=== PATIENT | female | born 1965 | race Caucasian/White ===

== ENCOUNTER 2018-06-17 07:30 | Emergency (ER) | payer BC ==
[2018-06-17 08:06] VITALS: BP 179/86
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
--- NOTE | 2018-06-17 09:29 | RAD ---
HISTORY: point tender left lower paraspinal football injury COMPARISONS: None VIEWS: 5 , Frontal, lateral, coned-down lateral sacral, and bilateral oblique views of the lumbar spine. FINDINGS: ALIGNMENT: The alignment is normal. VERTEBRAL BODIES: The vertebral body heights are normal. The interpedicular distances are normal. There is mild anterolateral marginal osteophyte formation. JOINTS: There is facet osteoarthritis most pronounced along the lower lumbar spine. INTERVERTEBRAL DISCS: There is diffuse loss of intervertebral disc height. SOFT TISSUE: Unremarkable. OTHER: The pelvis is unremarkable. The lung bases are clear. IMPRESSION: DEGENERATIVE DISC DISEASE AND OSTEOARTHRITIS MOST PRONOUNCED ALONG THE LOWER LUMBAR SPINE. NO ACUTE OSSEOUS INJURY. IF SYMPTOMS PERSIST, RECOMMEND REPEAT IMAGING.
== END 2018-06-17 09:57 | disposition home or self-care (01) ==
LOC: UCCORT 07:30
DX: S39.92XA Unspecified injury of lower back, initial encounter (principal); W21.01XA Struck by football, initial encounter; Y93.9 Activity, unspecified; Y92.9 Unspecified place or not applicable; Z88.1 Allergy status to other antibiotic agents; Z88.0 Allergy status to penicillin; E11.9 Type 2 diabetes mellitus without complications; Z79.4 Long term (current) use of insulin; Z79.84 Long term (current) use of oral hypoglycemic drugs
CPT/HCPCS: 72110; 99201; G0463

== ENCOUNTER 2018-12-05 07:26 | Emergency (ER) | payer BC ==
--- NOTE | 2018-12-05 07:38 | UC ---
Minor Trauma HPI - HPI Summary HPI Summary: Patient presents to urgent care status post a fall that happened at 7:00 this morning. Patient states she was taking out garbage and didn't realize that it was icy. Patient states she slipped falling back. Patient landed on her buttock and low back, then struck her posterior head. No loss of consciousness. No blood from her HEENT. Patient did not lose consciousness. No chest pain or shortness of breath. No abdominal pain. No nausea vomiting. No paresthesias. Patient should reports posterior headache. Patient states she was crying very hard she was amenable to get herself under work and struggled to get up. Patient was able to get up on her. Patient drove herself here. Patient states she does have mild frontal headache that she thinks is from crying. Patient reports some discomfort in her left anterior shoulder. Patient states her legs ache. No open wounds, bruising, or abrasions that she is aware of. Patient is not on any anticoagulation. Patient's medications reviewed this visit. Pt is a diabetic - did not check sugars this morning. States she has been running high (200s) because running low on nighttime insulin - History of Current Complaint Stated Complaint: S/P FALL, BILAT ELBOW,RIGHT LEG,HEADACHE Hx Obtained From: Patient - Allergies/Home Medications Allergies/Adverse Reactions: Allergies Allergy/AdvReac Type Severity Reaction Status Date / Time cefaclor [From [facility]] Allergy Flu-like Verified 12/05/18 07:39 Symptoms Penicillins Allergy Rash Verified 12/05/18 07:39 erythromycin base AdvReac GI Upset Verified 12/05/18 07:39 Home Medications: Home Medications Low Dose Control 1 tab PO DAILY 12/05/18 [History Confirmed 12/05/18] PMH/Surg Hx/FS Hx/Imm Hx Previously Healthy: Yes Endocrine History: Diabetes - Surgical History Surgical History: Yes Surgery Procedure, Year, and Place: Cholecystectomy, 2000, [facility]; , 1994, [place] - Family History Known Family History: Positive: Hypertension - Social History Occupation: Employed Full-time Lives: With Family Alcohol Use: Rare Substance Use Type: None Smoking Status (MU): Never Smoked Tobacco Review of Systems All Other Systems Reviewed And Are Negative: Yes Constitutional: Positive: Negative Skin: Positive: Negative Eyes: Positive: Negative ENT: Positive: Negative Respiratory: Positive: Negative Cardiovascular: Positive: Negative Musculoskeletal: Positive: Other: - left anterior shoulder Neurological: Positive: Headache. Negative: Weakness, Paresthesia, Numbness Psychological: Positive: Negative Is Patient Immunocompromised?: No Physical Exam - Summary Physical Exam Summary: Vital Signs Reviewed: Yes A+Ox3, tearful - anxious - improved with conversation Eyes: Conjunctiva Clear, ETHAN. EOM intact and full ENT: Hearing grossly normal TM x 2 clear, no hemotymp, no septal hematoma, no blood oropharynx. mmoist, uvula midline, no exudate, no erythema Neck: Positive: Supple no pain c/t/l/s Respiratory: Positive: No respiratory distress, No accessory muscle use + CTA throughout no w/r Cardiovascular: RRR nl s1, s2 no m/r CBT <2 sec abd soft + BS nt/nd no guarding, no distension Musculoskeletal Exam: No pain spinous process c/t/l/s. mild discomfort cervical left paraspinal full AROM ext x 4 against resistance. Pt with pain left anterior shoulder with full extension and direct palpation + flex/ext elbow, pronate/supinate + abduction + SLE b/l + flex/ext knees, ankle Pt ambulatory Neurological: Positive: Alert, + sensation throughout Psychological: Positive: Normal Response To Family Skin: Positive: no rash, no ecchymosis, no open wounds noted Triage Information Reviewed: Yes Diagnostics - Radiology No standard instances Radiology Interpretation Completed By: Radiologist - Patient Name: AGUSTIN KRAUS Medical Record#: [id number] Ordering Physician: Lynn Otero MD Acct.#: [id number] : 1965 Age: 53 Sex: F Location: [facility] Exam Date: 12/05/18801 ADM Status: REG ER Order Information: SHOULDER LEFT 2+ VWS Accession Number: [id number] CPT: 65386 Indication: Left shoulder pain. 4 views of left shoulder demonstrates AC joint arthritis. There is calcifications along the quadriceps tendon which may represent calcific tendinitis. AC joint arthritis is noted. IMPRESSION: Calcific tendinitis of the distal supraspinatus tendon. AC joint arthritis is noted. <Electronically signed by Cindy Toledo MD in OV> 12/05/18819 Dictated By: Cindy Toledo MD Dictated Date/Time: 12/05/18819 Transcribed Date/ Time: 12/05/18817 Copy to: CC:Lynn Otero MD; No Primary Care Phys,NOPCP Imaging - [facility] Imaging [facility] Imaging [facility] [id number] [place] [address] ph ([phone]) ph ([phone]) ph ( [phone]) This report is only to be considered final once signed by the Provider(s) as displayed in the "<Electronically Signed by > " field (s). Absence of a signature indicates the report is in a draft status and still needs to be finalized. In the event this document was created by someone other than the signing Provider, the individual initiating the document will be listed in the "Entered by:" or "Dictated by:" oneil. 1 of 1 Patient Name: AGUSTIN KRAUS Medical Record#: [id number] Ordering Physician: Lynn Otero MD Acct.#: [id number] : 1965 Age: 53 Sex: F Location: [facility] Exam Date : 12/05/18 0759 ADM Status: [facility] ER Order Information: CT BRAIN WO Accession Number: [id number] CPT: 70066 Indication: Fall and headache. CT of the brain performed without IV contrast. Ventricular structures are midline. No midline shift is noted. The extra-axial spaces are unremarkable. There is no evidence of intracranial mass or hemorrhage. No other high or low density lesions are identified. Mastoid air cells and paranasal sinuses are otherwise unremarkable. IMPRESSION: No intracranial mass or hemorrhage is noted. <Electronically signed by Cindy Toledo MD in OV> 03/19/19 0840 Dictated By: Cindy Toledo MD Dictated Date/Time: 12/05/18 0840 Transcribed Date/Time: 12/05/18 0834 Copy to: CC: Lynn Otero MD; No Primary Care Phys,NOPCP Imaging - [facility] Imaging - [place] [facility] Imaging [facility] [id number] [place] [address] [place] [address] ph ([phone]) ph ([phone]) ph ([phone]) This report is only to be considered final once signed by the Provider(s) as displayed in the "<Electronically Signed by >" field (s). Absence of a signature indicates the report is in a draft status and still needs to be finalized. In the event this document was created by someone other than the signing Provider, the individual initiating the document will be listed in the "Entered by:" or "Dictated by:" oneil. 1 of 1 Patient Name: AGUSTIN KRAUS Medical Record#: [id number] Ordering Physician: Lynn Otero MD Acct.#: [id number] : 1965 Age: 53 Sex: F Location: [facility] Exam Date: 12/05/18 0759 ADM Status: REG ER Order Information: CT SPINE CERVICAL W/O Accession Number: [id number] CPT: 48396 HISTORY: fall, headache COMPARISONS: None relevant available at the time of dictation. TECHNIQUE: Multiple contiguous axial CT scans were obtained of the cervical spine without intravenous contrast, with coronal and sagittal multiplanar reformations. FINDINGS: BRAIN: The visualized brain is unremarkable CENTRAL CANAL: Evaluation of the central canal is limited on CT technique; however, there is no obvious canalicular mass or epidural hemorrhage. ALIGNMENT: There is trace anterolisthesis of C4 on C5. VERTEBRAL BODIES: There is anterolateral marginal osteophyte formation, reactive endplate changes most pronounced at C6-C7. There is no displaced fracture. JOINTS: There is uncovertebral and facet osteoarthritis. MUSCULATURE: Unremarkable INTERVERTEBRAL DISCS: There is diffuse loss of intervertebral disc height. AXIAL IMAGES: C2-C3: There is no osseous neural foraminal narrowing or central canal stenosis. C3-C4: There is mild right neural foraminal narrowing. There is no osseous central canal stenosis. C4-C5: There is no osseous neural foraminal narrowing or central canal stenosis. C5-C6: There is no osseous neural foraminal narrowing or central canal stenosis. C6-C7: There is moderate bilateral neuroforaminal narrowing. There is no osseous central canal stenosis. C7-T1: There is no osseous neural foraminal narrowing or central canal stenosis. SOFT TISSUES: The visualized soft tissues of the neck are unremarkable. The prevertebral fat stripe is preserved. OTHER: None. IMPRESSION: DEGENERATIVE DISC DISEASE AND OSTEOARTHRITIS. NO ACUTE OSSEOUS INJURY TO THE CERVICAL SPINE. <Electronically signed by Omid Swenson MD in OV> 12/05/18837 Dictated By: Omdi Swenson MD Dictated Date/Time: 12/05/18837 Transcribed Date/Time: 12/05/18835 This report is only to be considered final once signed by the Provider(s) as displayed in the "<Electronically Signed by >" field (s). Absence of a signature indicates the report is in a draft status and still needs to be finalized. In the event this document was created by someone other than the signing Provider, the individual initiating the document will be listed in the "Entered by:" or "Dictated by:" oneil. 1 of 2 Re-Evaluation - Re-Evaluation First Eval Re-Evaluation Time: 09:05 Change: Improved Comment: reviewed all images with pt. anticipate pain. motrin/apap. rest. hydrate. stretch. work note. return precautions Minor Trauma Course/Dx - Course Course Of Treatment: Patient presents to urgent care status post a mechanical slip on the ice. Patient here buttock low back and on her head. Patient without lose consciousness. Patient was crying very anxious initially. Patient after discussion called. Patient reports discomfort in her left anterior shoulder. Patient states her legs feel tight and achy but no focal pain. Patient denies vision changes of the she does have a posterior headache on the fall and frontal headache from crying. We'll give Tylenol. We'll place eyes. We'll check a CT head and neck this patient lives alone is very scared by the head injury. Left shoulder injury. On reassessment. Patient comfortable in agreement with plan. Pt's BP elevated at triage - anxious and tearful - related to visit -recommend recheck with PCP - Differential Dx/Diagnosis Provider Diagnosis: Musculoskeletal arm pain, Closed head injury Discharge - Sign-Out/Discharge Documenting (check all that apply): Patient Departure All imaging exams completed and their final reports reviewed: Yes - Discharge Plan Condition: Stable Disposition: HOME Patient Education Materials: Head Injury (ED), Musculoskeletal Pain (ED) Forms: *Work Release Referrals: No Primary Care Phys,NOPCP [Primary Care Provider] - Additional Instructions: Stay well hydrated. Drink plenty of non-alcoholic, non-caffinated beverages Anticipate increased body aches and soreness over the next 1-2 days- this is normal after a fall. Okay to alternate ibuprofen (Advil, Motrin) 600mg and Tylenol 650mg every 3 hours for pain or fever. Take with food. Do NOT take for more than 4-5 days. For the first 2 days, apply ice (wrapped in a towel) 20 minutes at a time, 2-3 times a day today and tomorrow. Then, apply heat - slow, gentle stretching is important It is recommended you walk and stretch slow every few hours today while you are awake to help with muscle stiffness. Contact your doctor to schedule a follow-up appointment this week. If you develop any concerning changes - vision changes, vomiting, confusion, uncontrolled pain - it is recommended you contact your doctor or go to the emergency department for further evaluation and treatment - Billing Disposition and Condition Condition: STABLE Disposition: Home
[2018-12-05 07:42] VITALS: BP 167/92
[2018-12-05] MEDS ORDERED: Acetaminophen TAB* 325 MG PO ONE (07:58)
== END 2018-12-05 09:20 | disposition home or self-care (01) ==
LOC: UCCORT 07:26
DX: S09.90XA Unspecified injury of head, initial encounter (principal); M25.512 Pain in left shoulder; E11.9 Type 2 diabetes mellitus without complications; Z88.0 Allergy status to penicillin; Z88.1 Allergy status to other antibiotic agents; W01.198A Fall on same level from slipping, tripping and stumbling with subsequent striking against other object, initial encounter; Y92.9 Unspecified place or not applicable
CPT/HCPCS: 70450; 72125; 99212; A9270-GY; G0463